=== PATIENT | female | born 1985 ===

== ENCOUNTER 2019-12-08 10:06 | Inpatient (IN) | payer OTHER ==
[2019-12-08] MEDS ORDERED: LIDOCAINE MPF (2%) 20 MG/1 ML VIAL 5 ML ONE (10:56)
[2019-12-08] MEDS ORDERED: DEXMEDETOMIDINE 200 MCG/2 ML VIAL IV ONE (10:56)
[2019-12-08] MEDS ORDERED: METOCLOPRAMIDE 10 MG/2 ML INJ IV ONE (11:03)
[2019-12-08] MEDS ORDERED: FAMOTIDINE 20 MG/2 ML INJ IV ONE (11:03)
[2019-12-08] MEDS ORDERED: BICITRA ORAL LIQD 30ML PO ONE (11:03)
[2019-12-08] MEDS ORDERED: BUPIVACAINE/PF (0.5%) 5 MG/1 ML 30 ML VIAL INFILTRATI ONE (11:17)
[2019-12-08] MEDS ORDERED: OXYTOCIN 10 UNIT/1 ML INJ ONE (11:17)
[2019-12-08] MEDS ORDERED: ONDANSETRON 4 MG/2 ML INJ ONE (11:17)
[2019-12-08] MEDS ORDERED: KETOROLAC 30 MG/1 ML INJ ONE (11:17)
[2019-12-08] MEDS ORDERED: SODIUM CHLORIDE P/F VIAL 10 ML 10 ML ONE (11:20)
[2019-12-08 11:46] LABS: Basophils % (Auto) 0.4 % (0.0-1.8); Eosinophils % (Auto) 0.3 % (0.0-4.3); Hematocrit 31.1 % (30.3-42.9); Hemoglobin 10.2 gm/dl (10.1-14.3); Lymphocytes # (Auto) 1.6 K/mm3 (1.2-5.4); Lymphocytes % (Auto) 24.9 % (13.4-35.0); Mean Corpuscular HGB Conc 33 % (30-34); Mean Corpuscular Volume 79 fl (79-97); Monocytes # (Auto) 0.3 K/mm3 (0.0-0.8); Monocytes % (Auto) 4.5 % (0.0-7.3); Platelet Count 171 K/mm3 (140-440); Red Blood Count 3.93 M/mm3 (3.65-5.03); Red Cell Distribution Width 15.9 % (13.2-15.2)
--- NOTE | 2019-12-08 11:55 | Anesthesia Day of Surgery ---
Anesthesia Day of Surgery - Day of Surgery Patient Examined: Yes Patient H&P Reviewed: Yes Patient is NPO: Yes
--- NOTE | 2019-12-08 11:55 | Anesthesia Consultation ---
Anesthesia Consult and Med Hx Date of service: 12/08/19 - Airway Anesthetic Teeth Evaluation: Good ROM Head & Neck: Adequate Mental/Hyoid Distance: Adequate Mallampati Class: Class II Intubation Access Assessment: Probably Good - Pulmonary Exam CTA: Yes - Cardiac Exam Cardiac Exam: RRR - Pre-Operative Health Status ASA Pre-Surgery Classification: ASA2 Proposed Anesthetic Plan: Spinal
[2019-12-08] MEDS ORDERED: LACTATED RINGERS 1,000 ML IV SCH (12:00)
[2019-12-08] MEDS ORDERED: ceFAZolin/Water 2 GM/20 ML 2 GM/20 ML SYRINGE IV NR (12:00)
[2019-12-08] MEDS ORDERED: OXYTOCIN 20 UNIT/1000ML DRIP 20 UNITS/1,000 ML BAG IV SCH ×2 (12:00→15:00)
[2019-12-08] MEDS ORDERED: WATER FOR IRRIG STERILE 1,500 ML BOTTLE IR ONE (12:32)
[2019-12-08] MEDS ORDERED: SODIUM CHLORIDE 0.9% IRR 1,500 ML BOTTLE IR ONE (12:32)
[2019-12-08] MEDS ORDERED: dexAMETHasone 20 MG/5 ML VIAL ONE (12:37)
[2019-12-08] MEDS ORDERED: WITCH HAZEL/ GLYCERIN PAD TP PRN (14:11)
[2019-12-08] MEDS ORDERED: NALOXONE 0.4 MG/1 ML INJ IV PRN (14:11)
[2019-12-08] MEDS ORDERED: LANOLIN/ZINC/DIMETHICONE (LANSINOH) 7 GM TP PRN (14:11)
[2019-12-08] MEDS ORDERED: MAGNESIUM HYDROXIDE (MOM) ORAL LIQD UDC PO PRN (14:14)
[2019-12-08] MEDS ORDERED: SENNOSIDES 8.6 MG TAB PO PRN (14:14)
[2019-12-08] MEDS ORDERED: ONDANSETRON 4 MG/2 ML INJ IV PRN (14:14)
--- NOTE | 2019-12-08 18:32 | Procedure Note ---
OB Delivery Note - Delivery Date of Delivery: 12/08/19 Surgeon: ISHA FULLER Estimated blood loss: other (800cc) - Section Preop diagnosis: repeat Postop diagnosis: same section procedure: repeat low transverse Disposition: PACU Complications: none Narrative: Pt is at 39.5 weeks with h/o 2 prior C-sections and is here today for her repeat low transverse . Findings: Normal tubes and ovaries. Normal uterus although it was bulky. Also there were significantly thick dense anterior uterine wall adhesions. Urine was clear at the end of the case with no evidence of bladder injury noted. The fetus was a double footling breech. Loose nuchal cord 2. Clear fluid. Procedure: Patient taken to the operating room and prepped and draped the usual fashion. Pfannenstiel skin incision was made over her prior incision. Incision carried down to the underlying fascia. Fascia incised and incision was extended bilaterally. Rectus fascia dissected off the rectus muscle both superiorly and inferiorly. At this point attention was turned to entering the peritoneum. This ended up being quite difficult to the significant anterior uterine scarring that was noted. Eventually a safe peritoneal window was found and entered. This uterine scarring was then carefully dissected off of the uterus. Once this was done the anterior uterine wall was easier to view. Bladder blade was placed. There was no gross evidence of bladder injury. The uterine incision was made and extended bilaterally. The fetus was delivered in the typical breech fashion. Baby was bulb suctioned after delivery cord was clamped and cut and handed off to the waiting team. The uterus was then exteriorized and cleared of all clots and debris. The uterine incision was closed with #1 Vicryl in a running locked fashion followed by second imbricating layer of #1 Vicryl. The area of adhesions that were lysed were superior to the uterine incision. This area had also been reapproximated with 2-0 Vicryl in a couple layers to control the oozing. Good hemostasis was noted afterwards. At this point the Chand catheter was clamped and retrograde fill with saline. The bladder did distend without any evidence of any leaking saline. The Chand was unclamped and the bladder emptied out without any blood in the urine. At this point the uterus tubes and ovaries were returned to the abdominal cavity. The gutters were cleared of all clots and debris and the pelvis was well irrigated. Good hemostasis noted. Interceed placed over the uterine incision and over the lower uterine segment in the midline. The rectus fascia was then reapproximated with #1 Vicryl in a running fashion. Subcutaneous tissues tissue was well irrigated and reapproximated 2-0 Vicryl in a running fashion. Skin was closed with 4-0 Vicryl in a subcuticular fashion followed by Dermabond. Patient tolerated the procedure well. All instrument and lap counts were correct. Patient taken to the recovery room in stable condition. - Infant A at 1 minute: 8 at 5 minutes: 9 Gender: Female
[2019-12-08] MEDS: SIMETHICONE 80 MG CHEW TAB PO PRN (19:49)
[2019-12-08] MEDS: KETOROLAC 30 MG/1 ML INJ IV PRN (21:13)
[2019-12-09] MEDS: oxyCODONE /ACETAMINOPHEN 5-325MG TAB PO PRN ×4 (01:31→22:23)
[2019-12-09 03:03] LABS: Hematocrit 27.2 % (30.3-42.9)
[2019-12-09] MEDS: KETOROLAC 30 MG/1 ML INJ IV PRN ×2 (03:37→13:41)
--- NOTE | 2019-12-09 11:49 | Progress Note ---
Assessment and Plan A: /postop day 1 S/P repeat LTCS. Anemia secondary to and blood loss. P: Supplement with iron. Encouraged ambulation. Continue current management. Subjective - Subjective Date of service: 12/09/19 Principal diagnosis: /postop day 1 S/P repeat LTCS Interval history: /postop day 1 S/P repeat LTCS. Doing well. Voiding without difficulty. Passing gas. Ambulating well. Tolerating a regular diet without nausea or vomiting. Patient denies headache, chest pain, cough, shortness of breath, leg pain, heavy vaginal bleeding, or dizziness. Patient reports: appetite normal, voiding normally, pain well controlled, flatus, ambulating normally, no dizzy ambulation, no nauseated [place]: doing well Objective - Vital Signs Latest vital signs: Vital Signs Temp Pulse Resp BP BP Pulse Ox 12/09/19 08:24 20 12/09/19 07:29 97.8 F 62 16 103/58 94 12/09/19 03:37 18 12/09/19 01:31 18 12/09/19 01:03 98.0 F 67 20 119/73 96 12/08/19 21:13 18 12/08/19 16:04 97.7 F 58 L 20 101/66 96 12/08/19 15:20 60 18 97/64 95 12/08/19 15:10 97.6 F 12/08/19 15:00 58 L 17 106/71 94 12/08/19 14:56 97.4 F L 12/08/19 14:45 55 L 19 107/71 95 12/08/19 14:30 61 12 102/69 95 12/08/19 14:15 55 L 20 102/63 96 12/08/19 14:10 59 L 20 103/66 97 12/08/19 14:05 97.5 F L 62 13 107/69 97 12/08/19 12:04 98.4 F Intake and Output 12/08/19 12/09/19 12/09/19 23:59 07:59 15:59 Intake Total 100 200 120 Output Total 1200 1100 Balance -1100 -900 120 Intake: Oral 100 200 120 Output: Urine 1200 1100 Indwelling 800 500 Indwelling Catheter 400 Void 600 Other: Total, Intake Amount 100 200 120 Total, Output Amount 400 600 - Exam Cardiovascular: Present: Regular rate, Normal S1, Normal S2, No murmurs Lungs: Present: Clear to auscultation Abdomen: Present: normal appearance, soft, normal bowel sounds. Absent: distention, tenderness, guarding, rigidity Uterus: Present: normal, firm, fundal height below umbilicus. Absent: tenderness Extremities: Present: normal. Absent: tenderness Incision: Present: normal, dry, dressed - Labs Labs: Abnormal lab results 12/08/19 12/09/19 Range/Units 10:55 02:28 Hgb 9.0 L (10.1-14.3) gm/dl Hct 27.2 L (30.3-42.9) % MCH 26 L (28-32) pg RDW 15.9 H (13.2-15.2) %
[2019-12-09] MEDS: SIMETHICONE 80 MG CHEW TAB PO PRN (16:55)
[2019-12-09] MEDS: IBUPROFEN 800 MG TAB PO PRN (18:40)
--- NOTE | 2019-12-09 20:44 | Post Anesthesia Evaluation ---
- Post Anesthesia Evaluation Patient Participated: Yes Airway Patent: Yes Stable Respiratory Function: Yes Nausea/Vomiting: No Temp > 96.8F: Yes Pain Manageable: Yes Adequeate Hydration: Yes Anesthesia Complications: No Block Receding Appropriately: Yes
[2019-12-09] MEDS ORDERED: FERROUS SULFATE 325 MG TAB PO SCH (22:00)
[2019-12-10] MEDS: oxyCODONE /ACETAMINOPHEN 5-325MG TAB PO PRN ×3 (06:18→17:59)
[2019-12-10] MEDS: IBUPROFEN 800 MG TAB PO PRN ×2 (12:00→17:30)
--- NOTE | 2019-12-10 12:47 | Progress Note ---
Assessment and Plan A: /postop day 2 S/P repeat LTCS. Anemia secondary to and blood loss. P: Continue iron supplementation. Encouraged ambulation. Continue current management. Subjective - Subjective Date of service: 12/10/19 Principal diagnosis: /postop day 2 S/P repeat LTCS Interval history: /postop day 2 S/P repeat LTCS. Doing well. Voiding without difficulty. Passing gas. Ambulating well. Tolerating a regular diet without nausea or vomiting. Patient denies headache, chest pain, cough, shortness of breath, leg pain, heavy vaginal bleeding, or dizziness. Patient reports: appetite normal, voiding normally, pain well controlled, flatus, ambulating normally, no dizzy ambulation, no nauseated [place]: doing well Objective - Vital Signs Latest vital signs: Vital Signs Temp Pulse Resp BP Pulse Ox 12/10/19 12:00 20 12/10/19 07:53 97.6 F 68 16 124/73 96 12/09/19 23:50 98.2 F 70 20 124/71 97 12/09/19 19:40 18 12/09/19 16:55 20 12/09/19 15:56 97.5 F L 71 20 107/58 95 Intake and Output 12/09/19 12/10/19 12/10/19 23:59 07:59 15:59 Intake Total 360 240 240 Output Total 650 Balance -290 240 240 Intake: Oral 360 240 240 Output: Urine 650 Void 650 Other: Total, Intake Amount 120 240 240 Total, Output Amount 650 # Voids Void 1 1 1 - Exam Cardiovascular: Present: Regular rate, Normal S1, Normal S2, No murmurs Lungs: Present: Clear to auscultation Abdomen: Present: normal appearance, soft, normal bowel sounds. Absent: distention, tenderness, guarding, rigidity Uterus: Present: normal, firm, fundal height below umbilicus. Absent: bogginess, tenderness Extremities: Present: normal. Absent: tenderness Incision: Present: normal, dry, dressed
[2019-12-11] MEDS: IBUPROFEN 800 MG TAB PO PRN (00:14)
--- NOTE | 2019-12-11 11:40 | Progress Note ---
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 Patient reports: appetite normal, voiding normally, pain well controlled, flatus, ambulating normally, no dizzy ambulation, no bowel movement : doing well, nursing well Objective - Vital Signs Latest vital signs: Vital Signs Temp Pulse Resp BP BP Pulse Ox 12/11/19 08:16 98.3 F 64 18 115/70 97 12/10/19 23:29 97.9 F 69 20 123/79 97 12/10/19 17:59 20 12/10/19 17:30 20 12/10/19 15:54 97.9 F 66 16 122/75 98 12/10/19 12:00 20 Intake and Output 12/10/19 12/11/19 12/11/19 23:59 07:59 15:59 Intake Total 240 840 Balance 240 840 Intake: Oral 240 Intake, Free Water 840 Other: Total, Intake Amount 240 # Voids Void 1 2 - Exam Cardiovascular: Present: Regular rate Lungs: Present: Clear to auscultation, Normal air movement Abdomen: Present: normal appearance, soft Vulva: both: normal Uterus: Present: normal, firm, fundal height below umbilicus Extremities: Present: normal Incision: Present: normal, dry, intact Comments: scant lochia
--- NOTE | 2019-12-11 11:43 | Discharge Summary ---
Providers - Providers Date of Admission: 12/08/19 10:06 Date of discharge: 12/11/19 Attending physician: ISHA FULLER Primary care physician: ISHA FULLER Hospitalization Reason for admission: section, IUP at term Delivery: Procedure: repeat low transverse Episiotomy: none Laceration: none Incision: normal, dry, intact Other procedures: none complications: none Discharge diagnosis: IUP at term delivered [place] baby: female Hospital course: Uncomplicated Condition at discharge: Stable Disposition: - TO HOME OR SELFCARE - Discharge Diagnoses (1) S/P repeat low transverse Status: Acute (2) Anemia due to blood loss, acute Status: Acute Comment: Asymptomatic Continue iron therapy Eat iron-rich foods Plan - Discharge Medications Prescriptions: Ferrous Sulfate [Feosol 325 MG tab] 325 mg PO QHS #30 tablet Ibuprofen [Motrin 800 MG tab] 800 mg PO Q6H PRN #30 tablet PRN Reason: Pain, Mild (1-3) oxyCODONE /ACETAMINOPHEN [Percocet 5/325 mg] 1 tab PO Q6H PRN #30 tablet PRN Reason: Pain, Moderate (4-6) - Provider Discharge Summary Activity: routine, no sex for 6 weeks, no heavy lifting 4 weeks, no strenuous exercise Diet: routine Instructions: routine Additional instructions: [] Smoking cessation referral if applicable(refer to patient education folder for contact #) [] Refer to [facility] Booklet Call your doctor immediately for: * Fever > 100.5 * Heavy vaginal bleeding ( >1 pad per hour) * Severe persistent headache * Shortness of breath * Reddened, hot, painful area to leg or breast * Drainage or odor from incision. * Keep incision clean and dry at all times and follow doctor's instructions regarding bathing/showering - Follow up plan Follow up: ISHA FULLER MD [Primary Care Provider] - 7 Days (Follow up at [facility] as needed or in 1 week for incision check)
[2019-12-11 12:37] VITALS: BP 127/75
[2019-12-11] MEDS: oxyCODONE /ACETAMINOPHEN 5-325MG TAB PO PRN (12:56)
== END 2019-12-11 13:45 | disposition home or self-care (01) | DRG 787 ==
LOC: APU 10:06 → OB 19:28
PROVIDERS: ADMIT Obstetrics & Gynecology; ATTEND Obstetrics & Gynecology
PROC: 10D00Z1 Extraction of Products of Conception, Low, Open Approach (ICD-10-PCS; principal; 2019-12-08)
PROC: 0UN90ZZ Release Uterus, Open Approach (ICD-10-PCS; 2019-12-08)
DX: O99.344 Other mental disorders complicating childbirth (principal); D62 Acute posthemorrhagic anemia; O34.211 Maternal care for low transverse scar from previous cesarean delivery; O32.8XX0 Maternal care for other malpresentation of fetus, not applicable or unspecified; O99.89 Other specified diseases and conditions complicating pregnancy, childbirth and the puerperium; N73.6 Female pelvic peritoneal adhesions (postinfective); O99.02 Anemia complicating childbirth; F32.9 Major depressive disorder, single episode, unspecified; Z3A.39 39 weeks gestation of pregnancy; Z37.0 Single live birth
CPT/HCPCS: 36415; 85014; 85018; 85025; 86850; 86900; 86901; G0378; C1765; J0690; J1100; J1885; J2405; J2590; J2765; J3490; J7120